=== PATIENT | male | born 1960 | race Two or more races ===

== ENCOUNTER 2024-03-05 18:30 | Emergency (ER) | payer SELFPAY ==
[~2024-03-05] VITALS: Ht 162.6 cm; Wt 69.9 kg
[2024-03-05 20:47] VITALS: BP 116/76; TEMP 98.4
[2024-03-05] MEDS ORDERED: CLIN300C12 PO (21:20)
[2024-03-05 21:49] VITALS: O2SAT 97
== END 2024-03-05 21:49 | disposition home or self-care (01) ==
LOC: ER 18:39
DX: E11.22 Type 2 diabetes mellitus with diabetic chronic kidney disease (principal); R20.0 Anesthesia of skin; I50.9 Heart failure, unspecified; N18.6 End stage renal disease; Z89.611 Acquired absence of right leg above knee; Z99.2 Dependence on renal dialysis
CPT/HCPCS: 82962-TC